=== PATIENT | male | born 1985 | race Caucasian/White ===

== ENCOUNTER 2024-01-26 10:30 | Outpatient (RCR) | payer OTHER, SELFPAY ==
--- NOTE | 2023-11-30 12:00 | PT.OIE ---
Current Diagnoses Radiculopathy, lumbar region (11/30/23) Dorsalgia, unspecified (11/30/23) Visit Care Team Role Provider Type PANCHO Cohn Attending Provider Non-Staff Primary Care Provider Referring Provider Specialty: Nursing Address: [facility], [facility] [address], [address] Email: Physical Therapy Initial Evaluation PT-OP-A Visit Information Start: 11/30/23 14:12 Freq: Status: Active Protocol: Document 11/30/23 11:15 DCW (Rec: 11/30/23 14:22 DCW [id number]) Out-Patient Physical Therapy Visit Information Visit Information Visit Type Initial Evaluation Visit Start Time 11:15 Visit Stop Time 12:00 Visit Number 1 Number of INTERNAL COMMUNICATIONS MANAGER Visits 0 Evaluation Information Evaluation Date 11/30/23 PT-OP-B Current Condition Start: 11/30/23 14:12 Freq: Status: Active Protocol: Document 11/30/23 11:15 DCW (Rec: 12/01/23 12:32 DCW [id number]) Current Condition History of Current Condition Onset Date Multi-year history Current Complaints Low back pain History of Current Condition Pt is a 38 year old male presenting with a long- standing history of low back pain, however pt notes that 1- 2 months ago, he had an episode where he bent over to don his pants, and had sudden flare-up of back pain, and was unable to stand up. Ended up needing to crawl up the wall[place], which, per pt, showed disc bulging in L2- 3, L3-4, and L4-5. Pt reports he had a massage, which seemed to help, and then his PCP provided OMT, which also helped short-term, unfortunately the following day, had severe re-flare-up of pain. Pt notes that every morning is physically painful to get out of bed. Also hurts more when first getting up from sitting for an extended period of time. Pain is mainly across his lumbar spine, but does radiate down the lateral aspect of his leg to his knee, mainly on right, very occasionally on his left. Has been significantly better over the past week. Treatment Goals Patient/Caregiver Goals To be able to get out of his bed in the morning without pain PT-OP-C Subjective Start: 11/30/23 14:12 Freq: Status: Active Protocol: Document 11/30/23 11:15 DCW (Rec: 11/30/23 14:22 DCW [id number]) OP-PT Subjective Patient Comments Patient Comments It's actually not too bad today. Patient Reported Progress Improving Patient Questionnaires Oswestry Low Back Index Oswestry Score 16/50 = 32% OP-PT Pain Assessment Location Lower Back Pain Location Details Across low back bilaterally Intensity 5 Scale Used Numeric (0 - 10) Radiating Location Occasional radicular pain down right lateral leg to knee PT-OP-F Manual Assessment Start: 11/30/23 14:12 Freq: Status: Active Protocol: Document 11/30/23 11:15 DCW (Rec: 11/30/23 14:28 DCW [id number]) Manual Assessments Soft Tissue Assessment Soft Tissue Mobility Assessment Moderate tone and tenderness to palpation 2/4: Pain with wincing along bilateral lumbar paraspinals, superior glutes, and piriformis Joint Mobility Assessment Joint Mobility Assessment Mild hypomobility of lumbar vertabre P->A PT-OP-K Range of Motion Start: 11/30/23 14:12 Freq: Status: Active Protocol: Document 11/30/23 11:15 DCW (Rec: 11/30/23 14:28 DCW [id number]) Lumbar Spine Range of Motion Lumbar Spine Active Degrees Testing Position Standing Flexion 55 Extension 20 Lateral Flexion Left 55 Lateral Flexion Right 53 ROM Limitations Soft Tissue Tightness Comments Lateral flexion measured in cm from fingertips to floor Increased pain on R with left lateral flexion PT-OP-L Special Tests Start: 11/30/23 14:12 Freq: Status: Active Protocol: Document 11/30/23 11:15 DCW (Rec: 11/30/23 14:28 DCW [id number]) Special Tests Lumbar Spine Special Tests Vertical Spine Loading Test Results Negative Straight Leg Raise Test Results Bilateral hamstring tightness Slump Test Results Bilateral hamstring tightness Prone Press Up Test Results Worsens pain Compression Test Results Negative A-P Shearing Test Results Negative Hip Special Tests Piriformis Test Results Bilateral tightness MARCIN Test Results Positive right ipsilateral pain PT-OP-M Strength Start: 11/30/23 14:12 Freq: Status: Active Protocol: Document 11/30/23 11:15 DCW (Rec: 11/30/23 14:22 DCW [id number]) Hip Strength Hip Manual Muscle Testing Right Flexion (L2) 5 Normal Abduction 5 Normal Adduction 5 Normal Left Flexion (L2) 5 Normal Abduction 5 Normal Adduction 5 Normal Knee Strength Knee Manual Muscle Testing Right Flexion (S2) 5 Normal Extension (L3) 5 Normal Left Flexion (S2) 5 Normal Extension (L3) 5 Normal PT-OP-Q Treatments Start: 11/30/23 14:12 Freq: Status: Active Protocol: Document 11/30/23 11:15 DCW (Rec: 11/30/23 14:22 DCW [id number]) Therapeutic Exercises Sidelying Exercises Reverse Clamshell Sidelying Exercise Name Reverse Clamshell Clamshell Sidelying Exercise Name Clamshell Open Book Sidelying Exercise Name Open Book Sitting Exercises Piriformis Sitting Exercise Name Seated figure-4 PT-OP-T Assessment and Plan Start: 11/30/23 14:12 Freq: Status: Active Protocol: Document 11/30/23 11:15 DCW (Rec: 12/01/23 12:32 DCW [id number]) Physical Therapy Assessment Rehab Potential Rehabilitation Potential Good Evaluation Complexity Number of Personal Factors/Comorbidities 0 Number of Body Systems Impaired 4 or More Clinical Presentation at Evaluation Stable Impairments Impairments Functional Activities, Functional Mobility,Soft Tissue Mobility,Tone Goals Two Impairment Pt experiences increase in low back pain to 5/10 getting out of bed Senior Care Goal (LTG) Pt to report decreased pain getting out of bed in the morning, a max of 2/10, in order to demonstrate improved functional mobility. LTG Duration 01/31/24 One Impairment Pt does not have an appropriate home exercise program Short Term Goal (STG) Pt to be independent and compliant with an appropriate HEP STG Duration 12/31/23 Assessment Summary Assessment Pt presents with signs and symptoms consistent with referring diagnosis. Pt overall already demonstrating fairly good improvement since initial referral, however continues to experiencing lingering increased muscle/ soft tissue tone along low back and posterior hips. Did not respond well to lumbar extension exercises. Tone and mild lumbar hypomobility does limit some ROM, pt appeared to respond well to stretching and focus on lumbar mobility, including open book. Pt should benefit from skilled therapeutic intervention focusing on stretching/tone management, functional lumbar mobility, and increasing hip/ lumbar stabilization Physical Therapy Plan Frequency and Duration Frequency of Treatment 2x/Week Plan of Care Start Date 11/30/23 Plan of Care End Date 01/31/24 Therapeutic Interventions Therapeutic Interventions Home Exercise Program,Joint Mobilizations,Manual Therapy, Neuromuscular Re-education, Patient/Caregiver Education, Self-Care/Home Management,Soft Tissue Mobilization, Therapeutic Activities, Therapeutic Exercises Modalities Cold Pack/Ice Massage,Hot Packs Next Visit Focus/Plan Next Note Type Treatment Note Next Visit Plan STM, lumbar stretching, core stabilization
--- NOTE | 2023-11-30 12:00 | PT.OPPOC ---
Physical, Occupational & Speech Therapy At [facility] Current Diagnoses Radiculopathy, lumbar region (11/30/23) Dorsalgia, unspecified (11/30/23) Visit Care Team Role Provider Type PANCHO Cohn Attending Provider Non-Staff Primary Care Provider Referring Provider Specialty: Nursing Address: [address], [address] Email: Plan Of Care PT-OP-T Assessment and Plan Start: 11/30/23 14:12 Freq: Status: Active Protocol: Document 11/30/23 11:15 DCW (Rec: 12/01/23 12:32 DCW [id number]) Physical Therapy Assessment Rehab Potential Rehabilitation Potential Good Evaluation Complexity Number of Personal Factors/Comorbidities 0 Number of Body Systems Impaired 4 or More Clinical Presentation at Evaluation Stable Impairments Impairments Functional Activities, Functional Mobility,Soft Tissue Mobility,Tone Goals Two Impairment Pt experiences increase in low back pain to 5/10 getting out of bed Fci Goal (LTG) Pt to report decreased pain getting out of bed in the morning, a max of 2/10, in order to demonstrate improved functional mobility. LTG Duration 01/31/24 One Impairment Pt does not have an appropriate home exercise program Short Term Goal (STG) Pt to be independent and compliant with an appropriate HEP STG Duration 12/31/23 Assessment Summary Assessment Pt presents with signs and symptoms consistent with referring diagnosis. Pt overall already demonstrating fairly good improvement since initial referral, however continues to experiencing lingering increased muscle/ soft tissue tone along low back and posterior hips. Did not respond well to lumbar extension exercises. Tone and mild lumbar hypomobility does limit some ROM, pt appeared to respond well to stretching and focus on lumbar mobility, including open book. Pt should benefit from skilled therapeutic intervention focusing on stretching/tone management, functional lumbar mobility, and increasing hip/ lumbar stabilization Physical Therapy Plan Frequency and Duration Frequency of Treatment 2x/Week Plan of Care Start Date 11/30/23 Plan of Care End Date 01/31/24 Therapeutic Interventions Therapeutic Interventions Home Exercise Program,Joint Mobilizations,Manual Therapy, Neuromuscular Re-education, Patient/Caregiver Education, Self-Care/Home Management,Soft Tissue Mobilization, Therapeutic Activities, Therapeutic Exercises Modalities Cold Pack/Ice Massage,Hot Packs Next Visit Focus/Plan Next Note Type Treatment Note Next Visit Plan STM, lumbar stretching, core stabilization Plan of Care Dates Plan of Care Start Date 11/30/23 Plan of Care End Date 01/31/24 Electronically Signed by: Milan Tucker, PT 12/01/23 [id number] If you are in agreement with this Plan of Care, please return a signed and dated copy. I have reviewed this Plan of Care and certify that the skilled therapy services above are required to meet the patient?s needs. Physician Signature Date Printed Name and Credentials Clinical Instructor Signature Printed Name and Credentials
--- NOTE | 2023-12-02 12:48 | PT.OTN ---
Current Diagnoses Radiculopathy, lumbar region (12/02/23) Dorsalgia, unspecified (12/02/23) Physical Therapy Treatment Note PT-OP-A Visit Information Start: 11/30/23 14:12 Freq: Status: Active Protocol: Document 12/02/23 12:00 DCW (Rec: 12/02/23 12:48 DCW [id number]) Out-Patient Physical Therapy Visit Information Visit Information Visit Type Treatment Note Visit Start Time 12:00 Visit Stop Time 12:45 Visit Number 2 Number of SAFETY SEALER Visits 0 Evaluation Information Evaluation Date 11/30/23 PT-OP-B Current Condition Start: 11/30/23 14:12 Freq: Status: Active Protocol: Document 11/30/23 11:15 DCW (Rec: 12/01/23 12:32 DCW [id number]) Current Condition History of Current Condition Onset Date Multi-year history Current Complaints Low back pain History of Current Condition Pt is a 38 year old male presenting with a long- standing history of low back pain, however pt notes that 1- 2 months ago, he had an episode where he bent over to don his pants, and had sudden flare-up of back pain, and was unable to stand up. Ended up needing to crawl up the wall[place] performed, which, per pt, showed disc bulging in L2- 3, L3-4, and L4-5. Pt reports he had a massage, which seemed to help, and then his PCP provided OMT, which also helped short-term, unfortunately the following day, had severe re-flare-up of pain. Pt notes that every morning is physically painful to get out of bed. Also hurts more when first getting up from sitting for an extended period of time. Pain is mainly across his lumbar spine, but does radiate down the lateral aspect of his leg to his knee, mainly on right, very occasionally on his left. Has been significantly better over the past week. Treatment Goals Patient/Caregiver Goals To be able to get out of his bed in the morning without pain PT-OP-C Subjective Start: 11/30/23 14:12 Freq: Status: Active Protocol: Document 12/02/23 12:00 DCW (Rec: 12/02/23 12:48 DCW [id number]) OP-PT Subjective Patient Comments Patient Comments A bit more painful yesterday and this morning, but expected, because I've been stretching. PT-OP-F Manual Assessment Start: 11/30/23 14:12 Freq: Status: Active Protocol: Document 11/30/23 11:15 DCW (Rec: 11/30/23 14:28 DCW [id number]) Manual Assessments Soft Tissue Assessment Soft Tissue Mobility Assessment Moderate tone and tenderness to palpation 2/4: Pain with wincing along bilateral lumbar paraspinals, superior glutes, and piriformis Joint Mobility Assessment Joint Mobility Assessment Mild hypomobility of lumbar vertabre P->A PT-OP-K Range of Motion Start: 11/30/23 14:12 Freq: Status: Active Protocol: Document 11/30/23 11:15 DCW (Rec: 11/30/23 14:28 DCW [id number]) Lumbar Spine Range of Motion Lumbar Spine Active Degrees Testing Position Standing Flexion 55 Extension 20 Lateral Flexion Left 55 Lateral Flexion Right 53 ROM Limitations Soft Tissue Tightness Comments Lateral flexion measured in cm from fingertips to floor Increased pain on R with left lateral flexion PT-OP-L Special Tests Start: 11/30/23 14:12 Freq: Status: Active Protocol: Document 11/30/23 11:15 DCW (Rec: 11/30/23 14:28 DCW [id number]) Special Tests Lumbar Spine Special Tests Vertical Spine Loading Test Results Negative Straight Leg Raise Test Results Bilateral hamstring tightness Slump Test Results Bilateral hamstring tightness Prone Press Up Test Results Worsens pain Compression Test Results Negative A-P Shearing Test Results Negative Hip Special Tests Piriformis Test Results Bilateral tightness MARCIN Test Results Positive right ipsilateral pain PT-OP-M Strength Start: 11/30/23 14:12 Freq: Status: Active Protocol: Document 11/30/23 11:15 DCW (Rec: 11/30/23 14:22 DCW [id number]) Hip Strength Hip Manual Muscle Testing Right Flexion (L2) 5 Normal Abduction 5 Normal Adduction 5 Normal Left Flexion (L2) 5 Normal Abduction 5 Normal Adduction 5 Normal Knee Strength Knee Manual Muscle Testing Right Flexion (S2) 5 Normal Extension (L3) 5 Normal Left Flexion (S2) 5 Normal Extension (L3) 5 Normal PT-OP-Q Treatments Start: 11/30/23 14:12 Freq: Status: Active Protocol: Document 12/02/23 12:00 DCW (Rec: 12/02/23 12:48 [facility] [id number]) Gym Equipment Therapeutic Ball Bridging Exercise Details Bridging /c feet on ball, add in HS curl Ball Size/Color Red - 55 cm Body Position Supine Resisted Rotation Exercise Details Resisted trunk rotation Ball Size/Color Green - 55 cm Lv 3 T-band Body Position Sitting Pelvic Tilts Exercise Details Pelvic tilts/circles Ball Size/Color Green - 55 cm Body Position Sitting Therapeutic Exercises Supine Exercises Piriformis Stretch Supine Exercise Name Knee to opposite shoulder Side bilateral Bridging Supine Exercise Name Bridging /c Ball squeeze, then with single leg lift Other Exercises Thread the Needle Other Exercise Name Thread the Needle Side bilateral Comments Quadruped Child's Pose Other Exercise Name Child's Pose Comments Quadruped Cat/Camel Other Exercise Name Cat/Camel Comments Quadruped Manual Therapy Treatment Consent Patient gave verbal consent for manual Yes treatment Soft Tissue Mobilization Lumbar Body Location R Lumbar paraspinals, upper glute Mobilization Type Strumming,Sustained Pressure Body Position Sidelying PT-OP-T Assessment and Plan Start: 11/30/23 14:12 Freq: Status: Active Protocol: Document 12/02/23 12:00 [facility] (Rec: 12/02/23 12:48 [facility] [id number]) Physical Therapy Assessment Impairments Impairments Functional Activities, Functional Mobility,Soft Tissue Mobility,Tone Goals Two Impairment Pt experiences increase in low back pain to 5/10 getting out of bed Automation Mechanic Goal (LTG) Pt to report decreased pain getting out of bed in the morning, a max of 2/10, in order to demonstrate improved functional mobility. LTG Duration 01/31/24 One Impairment Pt does not have an appropriate home exercise program Short Term Goal (STG) Pt to be independent and compliant with an appropriate HEP STG Duration 12/31/23 Assessment Summary Assessment Good response to treatment, pt felt like low back loosened significantly during treatment . Good challenge with most bridging activities, pt familiar with cat/camel and child's pose, will work on at home. Physical Therapy Plan Frequency and Duration Frequency of Treatment 2x/Week Plan of Care Start Date 11/30/23 Plan of Care End Date 01/31/24 Therapeutic Interventions Therapeutic Interventions Home Exercise Program,Joint Mobilizations,Manual Therapy, Neuromuscular Re-education, Patient/Caregiver Education, Self-Care/Home Management,Soft Tissue Mobilization, Therapeutic Activities, Therapeutic Exercises Modalities Cold Pack/Ice Massage,Hot Packs Next Visit Focus/Plan Next Note Type Treatment Note Next Visit Plan STM, lumbar stretching, core stabilization
--- NOTE | 2023-12-06 16:30 | PT.OTN ---
Current Diagnoses Radiculopathy, lumbar region (12/06/23) Dorsalgia, unspecified (12/06/23) Physical Therapy Treatment Note PT-OP-A Visit Information Start: 11/30/23 14:12 Freq: Status: Active Protocol: Document 12/06/23 12:44 AB (Rec: 12/06/23 13:47 AB [id number]) Out-Patient Physical Therapy Visit Information Visit Information Visit Type Treatment Note Visit Start Time 13:02 Visit Stop Time 13:43 Visit Number 3 Number of TEA TREE FARMER Visits 1 Evaluation Information Evaluation Date 11/30/23 PT-OP-B Current Condition Start: 11/30/23 14:12 Freq: Status: Active Protocol: Document 11/30/23 11:15 DCW (Rec: 12/01/23 12:32 DCW [id number]) Current Condition History of Current Condition Onset Date Multi-year history Current Complaints Low back pain History of Current Condition Pt is a 38 year old male presenting with a long- standing history of low back pain, however pt notes that 1- 2 months ago, he had an episode where he bent over to don his pants, and had sudden flare-up of back pain, and was unable to stand up. Ended up needing to crawl up the wall. [place] performed, which, per pt, showed disc bulging in L2- 3, L3-4, and L4-5. Pt reports he had a massage, which seemed to help, and then his PCP provided OMT, which also helped short-term, unfortunately the following day, had severe re-flare-up of pain. Pt notes that every morning is physically painful to get out of bed. Also hurts more when first getting up from sitting for an extended period of time. Pain is mainly across his lumbar spine, but does radiate down the lateral aspect of his leg to his knee, mainly on right, very occasionally on his left. Has been significantly better over the past week. Treatment Goals Patient/Caregiver Goals To be able to get out of his bed in the morning without pain PT-OP-C Subjective Start: 11/30/23 14:12 Freq: Status: Active Protocol: Document 12/06/23 12:44 AB (Rec: 12/06/23 13:47 AB [id number]) OP-PT Subjective Patient Comments Patient Comments Patient reports he is the same . Patient rates pain 2/10 right sided low back area. Patient reports massage therapist asked where to focus massage and where to position TENS unit. PT-OP-F Manual Assessment Start: 11/30/23 14:12 Freq: Status: Active Protocol: Document 11/30/23 11:15 DCW (Rec: 11/30/23 14:28 DCW [id number]) Manual Assessments Soft Tissue Assessment Soft Tissue Mobility Assessment Moderate tone and tenderness to palpation 2/4: Pain with wincing along bilateral lumbar paraspinals, superior glutes, and piriformis Joint Mobility Assessment Joint Mobility Assessment Mild hypomobility of lumbar vertabre P->A PT-OP-K Range of Motion Start: 11/30/23 14:12 Freq: Status: Active Protocol: Document 11/30/23 11:15 DCW (Rec: 11/30/23 14:28 DCW [id number]) Lumbar Spine Range of Motion Lumbar Spine Active Degrees Testing Position Standing Flexion 55 Extension 20 Lateral Flexion Left 55 Lateral Flexion Right 53 ROM Limitations Soft Tissue Tightness Comments Lateral flexion measured in cm from fingertips to floor Increased pain on R with left lateral flexion PT-OP-L Special Tests Start: 11/30/23 14:12 Freq: Status: Active Protocol: Document 11/30/23 11:15 DCW (Rec: 11/30/23 14:28 DCW [id number]) Special Tests Lumbar Spine Special Tests Vertical Spine Loading Test Results Negative Straight Leg Raise Test Results Bilateral hamstring tightness Slump Test Results Bilateral hamstring tightness Prone Press Up Test Results Worsens pain Compression Test Results Negative A-P Shearing Test Results Negative Hip Special Tests Piriformis Test Results Bilateral tightness MARCIN Test Results Positive right ipsilateral pain PT-OP-M Strength Start: 11/30/23 14:12 Freq: Status: Active Protocol: Document 11/30/23 11:15 DCW (Rec: 11/30/23 14:22 DCW [id number]) Hip Strength Hip Manual Muscle Testing Right Flexion (L2) 5 Normal Abduction 5 Normal Adduction 5 Normal Left Flexion (L2) 5 Normal Abduction 5 Normal Adduction 5 Normal Knee Strength Knee Manual Muscle Testing Right Flexion (S2) 5 Normal Extension (L3) 5 Normal Left Flexion (S2) 5 Normal Extension (L3) 5 Normal PT-OP-Q Treatments Start: 11/30/23 14:12 Freq: Status: Active Protocol: Document 12/06/23 12:44 AB (Rec: 12/06/23 13:47 AB [id number]) Therapeutic Exercises Supine Exercises abdominal bracing with LE extension Reps/Minutes X10 hamstring stretch Supine Exercise Name From hooklying Side bilateral Reps/Minutes 60 seconds X 2 Piriformis Stretch Supine Exercise Name Knee to opposite shoulder Side bilateral Reps/Minutes 60 sec X2 each LE Standing Exercises L stretch Standing Exercise Name from counter pank position Reps/Minutes X3 cat cow Standing Exercise Name from counter plank position Side bilateral Reps/Minutes X5 Therapeutic Activity Therapeutic Activity Log roll Comments to left and right side, multiple trials, verbal cues sit to stand Reps/Minutes X3 Comments Pt ed mechanics of sit to stand and self tactile cues for hip hinge Manual Therapy Treatment Soft Tissue Mobilization Lumbar Body Location R Lumbar paraspinals, upper glute Mobilization Type Strumming,Sustained Pressure Body Position Sidelying Manual Techniques MET for right AI and PI and pubic shotgun Reps/Duration 6 X 6 sec PT-OP-T Assessment and Plan Start: 11/30/23 14:12 Freq: Status: Active Protocol: Document 12/06/23 12:44 AB (Rec: 12/06/23 13:47 AB [id number]) Physical Therapy Assessment Goals Two Impairment Pt experiences increase in low back pain to 5/10 getting out of bed Sulfonator Operator Goal (LTG) Pt to report decreased pain getting out of bed in the morning, a max of 2/10, in order to demonstrate improved functional mobility. LTG Duration 01/31/24 One Impairment Pt does not have an appropriate home exercise program Short Term Goal (STG) Pt to be independent and compliant with an appropriate HEP STG Duration 12/31/23 Assessment Summary Assessment Pt reports feeling better end of session. Stand to sit with improved hip hinge, and reports less pain with log roll end of session. Physical Therapy Plan Frequency and Duration Frequency of Treatment 2x/Week Plan of Care Start Date 11/30/23 Plan of Care End Date 01/31/24 Next Visit Focus/Plan Next Note Type Treatment Note Next Visit Plan STM, lumbar stretching, core stabilization
--- NOTE | 2023-12-08 15:59 | PT.OTN ---
Current Diagnoses Radiculopathy, lumbar region (12/08/23) Dorsalgia, unspecified (12/08/23) Physical Therapy Treatment Note PT-OP-A Visit Information Start: 11/30/23 14:12 Freq: Status: Active Protocol: Document 12/08/23 13:34 SW (Rec: 12/08/23 14:32 SW [id number]) Out-Patient Physical Therapy Visit Information Visit Information Visit Type Treatment Note Visit Start Time 13:37 Visit Stop Time 14:17 Visit Number 4 Number of LI[employer]ED [employer] G[employer] OPERATOR Visits 2 PT-OP-B Current Condition Start: 11/30/23 14:12 Freq: Status: Active Protocol: Document 11/30/23 11:15 DCW (Rec: 12/01/23 12:32 DCW [id number]) Current Condition History of Current Condition Onset Date Multi-year history Current Complaints Low back pain History of Current Condition Pt is a 38 year old male presenting with a long- standing history of low back pain, however pt notes that 1- 2 months ago, he had an episode where he bent over to don his pants, and had sudden flare-up of back pain, and was unable to stand up. Ended up needing to crawl up the wall. [place], which, per pt, showed disc bulging in L2- 3, L3-4, and L4-5. Pt reports he had a massage, which seemed to help, and then his PCP provided OMT, which also helped short-term, unfortunately the following day, had severe re-flare-up of pain. Pt notes that every morning is physically painful to get out of bed. Also hurts more when first getting up from sitting for an extended period of time. Pain is mainly across his lumbar spine, but does radiate down the lateral aspect of his leg to his knee, mainly on right, very occasionally on his left. Has been significantly better over the past week. Treatment Goals Patient/Caregiver Goals To be able to get out of his bed in the morning without pain PT-OP-C Subjective Start: 11/30/23 14:12 Freq: Status: Active Protocol: Document 12/08/23 13:34 SW (Rec: 12/08/23 14:32 SW [id number]) OP-PT Subjective Patient Comments Patient Comments Pt reports pretty painful to get out of bed, has tried doing log roll technique, though forgets sometimes. Pain level 2-3/10. Pt reports he is at his 4 visists needs to see if he can get more approved. PT-OP-F Manual Assessment Start: 11/30/23 14:12 Freq: Status: Active Protocol: Document 11/30/23 11:15 DCW (Rec: 11/30/23 14:28 DCW [id number]) Manual Assessments Soft Tissue Assessment Soft Tissue Mobility Assessment Moderate tone and tenderness to palpation 2/4: Pain with wincing along bilateral lumbar paraspinals, superior glutes, and piriformis Joint Mobility Assessment Joint Mobility Assessment Mild hypomobility of lumbar vertabre P->A PT-OP-K Range of Motion Start: 11/30/23 14:12 Freq: Status: Active Protocol: Document 11/30/23 11:15 DCW (Rec: 11/30/23 14:28 DCW [id number]) Lumbar Spine Range of Motion Lumbar Spine Active Degrees Testing Position Standing Flexion 55 Extension 20 Lateral Flexion Left 55 Lateral Flexion Right 53 ROM Limitations Soft Tissue Tightness Comments Lateral flexion measured in cm from fingertips to floor Increased pain on R with left lateral flexion PT-OP-L Special Tests Start: 11/30/23 14:12 Freq: Status: Active Protocol: Document 11/30/23 11:15 DCW (Rec: 11/30/23 14:28 DCW [id number]) Special Tests Lumbar Spine Special Tests Vertical Spine Loading Test Results Negative Straight Leg Raise Test Results Bilateral hamstring tightness Slump Test Results Bilateral hamstring tightness Prone Press Up Test Results Worsens pain Compression Test Results Negative A-P Shearing Test Results Negative Hip Special Tests Piriformis Test Results Bilateral tightness MARCIN Test Results Positive right ipsilateral pain PT-OP-M Strength Start: 11/30/23 14:12 Freq: Status: Active Protocol: Document 11/30/23 11:15 DCW (Rec: 11/30/23 14:22 DCW [id number]) Hip Strength Hip Manual Muscle Testing Right Flexion (L2) 5 Normal Abduction 5 Normal Adduction 5 Normal Left Flexion (L2) 5 Normal Abduction 5 Normal Adduction 5 Normal Knee Strength Knee Manual Muscle Testing Right Flexion (S2) 5 Normal Extension (L3) 5 Normal Left Flexion (S2) 5 Normal Extension (L3) 5 Normal PT-OP-Q Treatments Start: 11/30/23 14:12 Freq: Status: Active Protocol: Document 12/08/23 13:34 (Rec: 12/08/23 14:32 [id number]) Therapeutic Exercises Supine Exercises abdominal bracing with LE extension Supine Exercise Name LE Extension> SLR (issued HEP) Reps/Minutes x10 ea Comments verbal/tactile cues for core facitilitation hamstring stretch Supine Exercise Name From hooklying Side bilateral Reps/Minutes 60 seconds X 2 Comments with and without ankle pumps Piriformis Stretch Supine Exercise Name Knee to opposite shoulder Side bilateral Reps/Minutes 60 sec X2 each LE Sidelying Exercises Reverse Clamshell Sidelying Exercise Name Reverse Clamshell Side bilateral Resistance AROM>Lvl 1 Comments Trialed level 2 difficulty stabilizing core Clamshell Sidelying Exercise Name Clamshell Side bilateral Resistance AROM>Lvl 1 Comments Trialed lvl 2 difficulty stabilizing core Sitting Exercises Piriformis Sitting Exercise Name Seated figure-4 Standing Exercises Palloff Standing Exercise Name Palloff press (issued HEP, pt denied HO) Side bilateral Resistance Level 3 Green TB Reps/Minutes x10 ea Comments cues for core facilitation, neutral pelvis L stretch Standing Exercise Name from counter pank position Side bilateral cat cow Standing Exercise Name from counter plank position Side bilateral Other Exercises Child's Pose Other Exercise Name verbal review Manual Therapy Treatment Soft Tissue Mobilization Lumbar Body Location R Lumbar paraspinals, upper glute Mobilization Type Strumming,Sustained Pressure Body Position Sidelying PT-OP-T Assessment and Plan Start: 11/30/23 14:12 Freq: Status: Active Protocol: Document 12/08/23 13:34 (Rec: 12/08/23 14:32 [id number]) Physical Therapy Assessment Goals Two Impairment Pt experiences increase in low back pain to 5/10 getting out of bed Correction Goal (LTG) Pt to report decreased pain getting out of bed in the morning, a max of 2/10, in order to demonstrate improved functional mobility. LTG Duration 01/31/24 One Impairment Pt does not have an appropriate home exercise program Short Term Goal (STG) Pt to be independent and compliant with an appropriate HEP STG Duration 12/31/23 Assessment Summary Assessment Progressed pt with resistance during clamshells, pt challenged with core stabilization, improved with cueing, pt demonstrated good form after a few repetitions. Pt standing with increased anterior pelvic tilt, educated pt on neutral pelvic alignment and engagement of core musculature during standing exercises. Continued HS stretch this session to increase length, educated pt on hamstring tightness and how it pulls on the pelvis. Encouraged pt to stretch daily . Physical Therapy Plan Frequency and Duration Frequency of Treatment 2x/Week Plan of Care Start Date 11/30/23 Plan of Care End Date 01/31/24 Therapeutic Interventions Therapeutic Interventions Home Exercise Program,Joint Mobilizations,Manual Therapy, Neuromuscular Re-education, Patient/Caregiver Education, Self-Care/Home Management,Soft Tissue Mobilization, Therapeutic Activities, Therapeutic Exercises Modalities Cold Pack/Ice Massage,Hot Packs Next Visit Focus/Plan Next Note Type Treatment Note Next Visit Plan STM, lumbar stretching, core stabilization
--- NOTE | 2023-12-22 12:43 | PT.OTN ---
Current Diagnoses Radiculopathy, lumbar region (12/22/23) Dorsalgia, unspecified (12/22/23) Physical Therapy Treatment Note PT-OP-A Visit Information Start: 11/30/23 14:12 Freq: Status: Active Protocol: Document 12/22/23 12:00 DCW (Rec: 12/22/23 12:43 DCW [id number]) Out-Patient Physical Therapy Visit Information Visit Information Visit Type Treatment Note Visit Start Time 12:00 Visit Stop Time 12:45 Visit Number 5 Number of [employer]ON HELPER Visits 0 Evaluation Information Evaluation Date 11/30/23 PT-OP-B Current Condition Start: 11/30/23 14:12 Freq: Status: Active Protocol: Document 11/30/23 11:15 DCW (Rec: 12/01/23 12:32 DCW [id number]) Current Condition History of Current Condition Onset Date Multi-year history Current Complaints Low back pain History of Current Condition Pt is a 38 year old male presenting with a long- standing history of low back pain, however pt notes that 1- 2 months ago, he had an episode where he bent over to don his pants, and had sudden flare-up of back pain, and was unable to stand up. Ended up needing to crawl up the wall. [place] performed, which, per pt, showed disc bulging in L2- 3, L3-4, and L4-5. Pt reports he had a massage, which seemed to help, and then his PCP provided OMT, which also helped short-term, unfortunately the following day, had severe re-flare-up of pain. Pt notes that every morning is physically painful to get out of bed. Also hurts more when first getting up from sitting for an extended period of time. Pain is mainly across his lumbar spine, but does radiate down the lateral aspect of his leg to his knee, mainly on right, very occasionally on his left. Has been significantly better over the past week. Treatment Goals Patient/Caregiver Goals To be able to get out of his bed in the morning without pain PT-OP-C Subjective Start: 11/30/23 14:12 Freq: Status: Active Protocol: Document 12/22/23 12:00 DCW (Rec: 12/22/23 12:43 DCW [id number]) OP-PT Subjective Patient Comments Patient Comments Been better, working on the different exercises, so we're getting there. PT-OP-F Manual Assessment Start: 11/30/23 14:12 Freq: Status: Active Protocol: Document 11/30/23 11:15 DCW (Rec: 11/30/23 14:28 DCW [id number]) Manual Assessments Soft Tissue Assessment Soft Tissue Mobility Assessment Moderate tone and tenderness to palpation 2/4: Pain with wincing along bilateral lumbar paraspinals, superior glutes, and piriformis Joint Mobility Assessment Joint Mobility Assessment Mild hypomobility of lumbar vertabre P->A PT-OP-K Range of Motion Start: 11/30/23 14:12 Freq: Status: Active Protocol: Document 11/30/23 11:15 DCW (Rec: 11/30/23 14:28 DCW [id number]) Lumbar Spine Range of Motion Lumbar Spine Active Degrees Testing Position Standing Flexion 55 Extension 20 Lateral Flexion Left 55 Lateral Flexion Right 53 ROM Limitations Soft Tissue Tightness Comments Lateral flexion measured in cm from fingertips to floor Increased pain on R with left lateral flexion PT-OP-L Special Tests Start: 11/30/23 14:12 Freq: Status: Active Protocol: Document 11/30/23 11:15 DCW (Rec: 11/30/23 14:28 DCW [id number]) Special Tests Lumbar Spine Special Tests Vertical Spine Loading Test Results Negative Straight Leg Raise Test Results Bilateral hamstring tightness Slump Test Results Bilateral hamstring tightness Prone Press Up Test Results Worsens pain Compression Test Results Negative A-P Shearing Test Results Negative Hip Special Tests Piriformis Test Results Bilateral tightness MARCIN Test Results Positive right ipsilateral pain PT-OP-M Strength Start: 11/30/23 14:12 Freq: Status: Active Protocol: Document 11/30/23 11:15 DCW (Rec: 11/30/23 14:22 DCW [id number]) Hip Strength Hip Manual Muscle Testing Right Flexion (L2) 5 Normal Abduction 5 Normal Adduction 5 Normal Left Flexion (L2) 5 Normal Abduction 5 Normal Adduction 5 Normal Knee Strength Knee Manual Muscle Testing Right Flexion (S2) 5 Normal Extension (L3) 5 Normal Left Flexion (S2) 5 Normal Extension (L3) 5 Normal PT-OP-Q Treatments Start: 11/30/23 14:12 Freq: Status: Active Protocol: Document 12/22/23 12:00 DCW (Rec: 12/22/23 12:43 [facility] [id number]) Therapeutic Exercises Supine Exercises hamstring stretch Supine Exercise Name From hooklying Side bilateral Reps/Minutes 60 seconds X 2 Piriformis Stretch Supine Exercise Name Knee to opposite shoulder Side bilateral Reps/Minutes 60 sec X2 each LE Sidelying Exercises Hip Flexor stretch Sidelying Exercise Name Hip Flexor stretch Side right Comments Manual Manual Therapy Treatment Soft Tissue Mobilization Lumbar Body Location R Lumbar paraspinals, upper glute Mobilization Type Strumming,Sustained Pressure Body Position Prone Joint Mobilizations Lumbar Joint Lumbar vertebrae Direction P->A Grade II Body Position Prone PT-OP-T Assessment and Plan Start: 11/30/23 14:12 Freq: Status: Active Protocol: Document 12/22/23 12:00 DCW (Rec: 12/22/23 12:43 [facility] [id number]) Physical Therapy Assessment Impairments Impairments Functional Activities, Functional Mobility,Soft Tissue Mobility,Tone Goals Two Impairment Pt experiences increase in low back pain to 5/10 getting out of bed Fci Goal (LTG) Pt to report decreased pain getting out of bed in the morning, a max of 2/10, in order to demonstrate improved functional mobility. LTG Duration 01/31/24 One Impairment Pt does not have an appropriate home exercise program Short Term Goal (STG) Pt to be independent and compliant with an appropriate HEP STG Duration 12/31/23 Assessment Summary Assessment Pt making good progress, significantly less pain when first getting up in the morning. Has been compliant with HEP, notes no questions or concerns. Continue to focus on stretching, STM, tone management. Physical Therapy Plan Frequency and Duration Frequency of Treatment 2x/Week Plan of Care Start Date 11/30/23 Plan of Care End Date 01/31/24 Therapeutic Interventions Therapeutic Interventions Home Exercise Program,Joint Mobilizations,Manual Therapy, Neuromuscular Re-education, Patient/Caregiver Education, Self-Care/Home Management,Soft Tissue Mobilization, Therapeutic Activities, Therapeutic Exercises Modalities Cold Pack/Ice Massage,Hot Packs Next Visit Focus/Plan Next Note Type Treatment Note Next Visit Plan STM, lumbar stretching, core stabilization
--- NOTE | 2023-12-27 16:43 | PT.OTN ---
Current Diagnoses Radiculopathy, lumbar region (12/27/23) Dorsalgia, unspecified (12/27/23) Physical Therapy Treatment Note PT-OP-A Visit Information Start: 11/30/23 14:12 Freq: Status: Active Protocol: Document 12/27/23 13:46 SW (Rec: 12/27/23 14:32 SW [id number]) Out-Patient Physical Therapy Visit Information Visit Information Visit Type Treatment Note Visit Start Time 13:46 Visit Stop Time 14:26 Visit Number 6 Number of SECURITY CHECKER Visits 1 PT-OP-B Current Condition Start: 11/30/23 14:12 Freq: Status: Active Protocol: Document 11/30/23 11:15 DCW (Rec: 12/01/23 12:32 DCW [id number]) Current Condition History of Current Condition Onset Date Multi-year history Current Complaints Low back pain History of Current Condition Pt is a 38 year old male presenting with a long- standing history of low back pain, however pt notes that 1- 2 months ago, he had an episode where he bent over to don his pants, and had sudden flare-up of back pain, and was unable to stand up. Ended up needing to crawl up the wall. [place] performed, which, per pt, showed disc bulging in L2- 3, L3-4, and L4-5. Pt reports he had a massage, which seemed to help, and then his PCP provided OMT, which also helped short-term, unfortunately the following day, had severe re-flare-up of pain. Pt notes that every morning is physically painful to get out of bed. Also hurts more when first getting up from sitting for an extended period of time. Pain is mainly across his lumbar spine, but does radiate down the lateral aspect of his leg to his knee, mainly on right, very occasionally on his left. Has been significantly better over the past week. Treatment Goals Patient/Caregiver Goals To be able to get out of his bed in the morning without pain PT-OP-C Subjective Start: 11/30/23 14:12 Freq: Status: Active Protocol: Document 12/27/23 13:46 SW (Rec: 12/27/23 14:32 SW [id number]) OP-PT Subjective Patient Comments Patient Comments Pt reports sore following last session, it helped loosen up and felt better. PT-OP-F Manual Assessment Start: 11/30/23 14:12 Freq: Status: Active Protocol: Document 11/30/23 11:15 DCW (Rec: 11/30/23 14:28 DCW [id number]) Manual Assessments Soft Tissue Assessment Soft Tissue Mobility Assessment Moderate tone and tenderness to palpation 2/4: Pain with wincing along bilateral lumbar paraspinals, superior glutes, and piriformis Joint Mobility Assessment Joint Mobility Assessment Mild hypomobility of lumbar vertabre P->A PT-OP-K Range of Motion Start: 11/30/23 14:12 Freq: Status: Active Protocol: Document 11/30/23 11:15 DCW (Rec: 11/30/23 14:28 DCW [id number]) Lumbar Spine Range of Motion Lumbar Spine Active Degrees Testing Position Standing Flexion 55 Extension 20 Lateral Flexion Left 55 Lateral Flexion Right 53 ROM Limitations Soft Tissue Tightness Comments Lateral flexion measured in cm from fingertips to floor Increased pain on R with left lateral flexion PT-OP-L Special Tests Start: 11/30/23 14:12 Freq: Status: Active Protocol: Document 11/30/23 11:15 DCW (Rec: 11/30/23 14:28 DCW [id number]) Special Tests Lumbar Spine Special Tests Vertical Spine Loading Test Results Negative Straight Leg Raise Test Results Bilateral hamstring tightness Slump Test Results Bilateral hamstring tightness Prone Press Up Test Results Worsens pain Compression Test Results Negative A-P Shearing Test Results Negative Hip Special Tests Piriformis Test Results Bilateral tightness MRACIN Test Results Positive right ipsilateral pain PT-OP-M Strength Start: 11/30/23 14:12 Freq: Status: Active Protocol: Document 11/30/23 11:15 DCW (Rec: 11/30/23 14:22 DCW [id number]) Hip Strength Hip Manual Muscle Testing Right Flexion (L2) 5 Normal Abduction 5 Normal Adduction 5 Normal Left Flexion (L2) 5 Normal Abduction 5 Normal Adduction 5 Normal Knee Strength Knee Manual Muscle Testing Right Flexion (S2) 5 Normal Extension (L3) 5 Normal Left Flexion (S2) 5 Normal Extension (L3) 5 Normal PT-OP-Q Treatments Start: 11/30/23 14:12 Freq: Status: Active Protocol: Document 12/27/23 13:46 SW (Rec: 12/27/23 14:32 SW [id number]) Gym Equipment Therapeutic Ball Lumbar flexion Exercise Details Lumbar flexion stretch Ball Size/Color Green Body Position seated Reps/Duration 2 x 60 Comments good stretch Therapeutic Exercises Supine Exercises hamstring stretch Supine Exercise Name From hooklying> sitting Side bilateral Reps/Minutes 60 seconds supine, 60 seconds sitting Sitting Exercises Piriformis Sitting Exercise Name Seated figure-4 Standing Exercises Hip flexor stretch Standing Exercise Name Hip flexor stretch Equipment Used Stairs Comments cues for hip alignment during stretch, core stabilization Gastroc/soleus Standing Exercise Name gastroc/soleus stretch Manual Therapy Treatment Consent Patient gave verbal consent for manual Yes treatment Soft Tissue Mobilization Lumbar Body Location R Lumbar paraspinals, upper glute Mobilization Type Strumming,Sustained Pressure Body Position Prone Manual Techniques PNF Type Contract relax Body Location HS Body Position Supine Comments manual HS stretch, pt education for at home stretch against wall PT-OP-T Assessment and Plan Start: 11/30/23 14:12 Freq: Status: Active Protocol: Document 12/27/23 13:46 (Rec: 12/27/23 14:32 [id number]) Physical Therapy Assessment Goals Two Impairment Pt experiences increase in low back pain to 5/10 getting out of bed Alf Goal (LTG) Pt to report decreased pain getting out of bed in the morning, a max of 2/10, in order to demonstrate improved functional mobility. LTG Duration 01/31/24 One Impairment Pt does not have an appropriate home exercise program Short Term Goal (STG) Pt to be independent and compliant with an appropriate HEP STG Duration 12/31/23 Assessment Summary Assessment Pt reports has been busy, not consistant with HEP. Continued focus on STM and stretching this session per PT plan. Initated PNF stretching this session with good pt feedback, instructed pt on self contract relax technique against wall for carryover to HEP. Pt denied HEP exercise HOs. Revised HEP to encourage pt compliance with easier positions to execute and fit in throughout the pt's workday . Physical Therapy Plan Frequency and Duration Frequency of Treatment 2x/Week Plan of Care Start Date 11/30/23 Plan of Care End Date 01/31/24 Therapeutic Interventions Therapeutic Interventions Home Exercise Program,Joint Mobilizations,Manual Therapy, Neuromuscular Re-education, Patient/Caregiver Education, Self-Care/Home Management,Soft Tissue Mobilization, Therapeutic Activities, Therapeutic Exercises Modalities Cold Pack/Ice Massage,Hot Packs Next Visit Focus/Plan Next Note Type Treatment Note Next Visit Plan STM, lumbar stretching, core stabilization
--- NOTE | 2023-12-29 14:54 | PT.OTN ---
Current Diagnoses Radiculopathy, lumbar region (12/29/23) Dorsalgia, unspecified (12/29/23) Physical Therapy Treatment Note PT-OP-A Visit Information Start: 11/30/23 14:12 Freq: Status: Active Protocol: Document 12/29/23 13:25 SW (Rec: 12/29/23 14:54 SW [id number]) Out-Patient Physical Therapy Visit Information Visit Information Visit Type Treatment Note Visit Start Time 13:45 Visit Stop Time 14:25 Visit Number 7 Number of OUTBOARD MOTORBOAT OPERATOR Visits 2 PT-OP-B Current Condition Start: 11/30/23 14:12 Freq: Status: Active Protocol: Document 11/30/23 11:15 DCW (Rec: 12/01/23 12:32 DCW [id number]) Current Condition History of Current Condition Onset Date Multi-year history Current Complaints Low back pain History of Current Condition Pt is a 38 year old male presenting with a long- standing history of low back pain, however pt notes that 1- 2 months ago, he had an episode where he bent over to don his pants, and had sudden flare-up of back pain, and was unable to stand up. Ended up needing to crawl up the wall[place], which, per pt, showed disc bulging in L2- 3, L3-4, and L4-5. Pt reports he had a massage, which seemed to help, and then his PCP provided OMT, which also helped short-term, unfortunately the following day, had severe re-flare-up of pain. Pt notes that every morning is physically painful to get out of bed. Also hurts more when first getting up from sitting for an extended period of time. Pain is mainly across his lumbar spine, but does radiate down the lateral aspect of his leg to his knee, mainly on right, very occasionally on his left. Has been significantly better over the past week. Treatment Goals Patient/Caregiver Goals To be able to get out of his bed in the morning without pain PT-OP-C Subjective Start: 11/30/23 14:12 Freq: Status: Active Protocol: Document 12/29/23 13:25 SW (Rec: 12/29/23 14:54 SW [id number]) OP-PT Subjective Patient Comments Patient Comments Pt reports a little pain getting up from bed this morning, attributes it to increased activity over the last couple days. PT-OP-F Manual Assessment Start: 11/30/23 14:12 Freq: Status: Active Protocol: Document 11/30/23 11:15 DCW (Rec: 11/30/23 14:28 DCW [id number]) Manual Assessments Soft Tissue Assessment Soft Tissue Mobility Assessment Moderate tone and tenderness to palpation 2/4: Pain with wincing along bilateral lumbar paraspinals, superior glutes, and piriformis Joint Mobility Assessment Joint Mobility Assessment Mild hypomobility of lumbar vertabre P->A PT-OP-K Range of Motion Start: 11/30/23 14:12 Freq: Status: Active Protocol: Document 11/30/23 11:15 DCW (Rec: 11/30/23 14:28 DCW [id number]) Lumbar Spine Range of Motion Lumbar Spine Active Degrees Testing Position Standing Flexion 55 Extension 20 Lateral Flexion Left 55 Lateral Flexion Right 53 ROM Limitations Soft Tissue Tightness Comments Lateral flexion measured in cm from fingertips to floor Increased pain on R with left lateral flexion PT-OP-L Special Tests Start: 11/30/23 14:12 Freq: Status: Active Protocol: Document 11/30/23 11:15 DCW (Rec: 11/30/23 14:28 DCW [id number]) Special Tests Lumbar Spine Special Tests Vertical Spine Loading Test Results Negative Straight Leg Raise Test Results Bilateral hamstring tightness Slump Test Results Bilateral hamstring tightness Prone Press Up Test Results Worsens pain Compression Test Results Negative A-P Shearing Test Results Negative Hip Special Tests Piriformis Test Results Bilateral tightness MARCIN Test Results Positive right ipsilateral pain PT-OP-M Strength Start: 11/30/23 14:12 Freq: Status: Active Protocol: Document 11/30/23 11:15 DCW (Rec: 11/30/23 14:22 DCW [id number]) Hip Strength Hip Manual Muscle Testing Right Flexion (L2) 5 Normal Abduction 5 Normal Adduction 5 Normal Left Flexion (L2) 5 Normal Abduction 5 Normal Adduction 5 Normal Knee Strength Knee Manual Muscle Testing Right Flexion (S2) 5 Normal Extension (L3) 5 Normal Left Flexion (S2) 5 Normal Extension (L3) 5 Normal PT-OP-Q Treatments Start: 11/30/23 14:12 Freq: Status: Active Protocol: Document 12/29/23 13:25 SW (Rec: 12/29/23 14:54 [id number]) Therapeutic Exercises Standing Exercises Hip hinge Standing Exercise Name Hip hinge mechanics Side bilateral Resistance AROM Equipment Used wand for tactile feedback Comments edu on lifting mechanics Palloff Standing Exercise Name Palloff press Side bilateral Resistance Level 4 TB Reps/Minutes x10 ea Comments cues for core facilitation, neutral pelvis Other Exercises Bird dog Other Exercise Name UE only> LE only Side bilateral Cat/Camel Other Exercise Name Cat/Camel Comments Quadruped Manual Therapy Treatment Soft Tissue Mobilization Lumbar Body Location R Lumbar paraspinals, QL, upper glute Mobilization Type Myofascial Release,Strumming, Sustained Pressure Body Position Prone Comments STM w/movement hip IR/ER Manual Techniques PNF Type Contract relax Body Location HS Body Position Supine Comments manual HS stretch, pt education for at home stretch against wall Self-Care/Home Management Treatment Education Patient Education Body Mechanics,Home Exercise Program,Posture Other Education Pt education on proper lifting mechanics, pt education on mobility and stability. Posture. PT-OP-T Assessment and Plan Start: 11/30/23 14:12 Freq: Status: Active Protocol: Document 12/29/23 13:25 SW (Rec: 12/29/23 14:54 [id number]) Physical Therapy Assessment Goals Two Impairment Pt experiences increase in low back pain to 5/10 getting out of bed Supervisor Endless Track Vehicle Goal (LTG) Pt to report decreased pain getting out of bed in the morning, a max of 2/10, in order to demonstrate improved functional mobility. LTG Duration 01/31/24 One Impairment Pt does not have an appropriate home exercise program Short Term Goal (STG) Pt to be independent and compliant with an appropriate HEP STG Duration 12/31/23 Assessment Summary Assessment Progressed core strengthening exercises this session with addition of bird dogs, verbal and tactile cues to maintain good alignment and core stability, improved with repetitions, LE only this session, plan to assess progress next session and progress to alternating UE/LE if able. Pt education today on proper lifting mechanics and the importance of proper form and stabilization to decrease exessive lumbar lordosis during lifting. Physical Therapy Plan Frequency and Duration Frequency of Treatment 2x/Week Plan of Care Start Date 11/30/23 Plan of Care End Date 01/31/24 Therapeutic Interventions Therapeutic Interventions Home Exercise Program,Joint Mobilizations,Manual Therapy, Neuromuscular Re-education, Patient/Caregiver Education, Self-Care/Home Management,Soft Tissue Mobilization, Therapeutic Activities, Therapeutic Exercises Modalities Cold Pack/Ice Massage,Hot Packs Next Visit Focus/Plan Next Note Type Treatment Note Next Visit Plan STM, lumbar stretching, core stabilization
--- NOTE | 2024-01-10 15:47 | PT.OTN ---
Current Diagnoses Radiculopathy, lumbar region (01/10/24) Dorsalgia, unspecified (01/10/24) Physical Therapy Treatment Note PT-OP-A Visit Information Start: 11/30/23 14:12 Freq: Status: Active Protocol: Document 01/10/24 11:10 AB (Rec: 01/10/24 15:47 AB [id number]) Out-Patient Physical Therapy Visit Information Visit Information Visit Type Treatment Note Visit Note Visit [email or web address] Access Code: [email or web address] Visit Start Time 13:49 Visit Stop Time 14:29 Visit Number 8 Number of PIANO REGULATOR INSPECTOR Visits 3 Evaluation Information Evaluation Date 11/30/23 PT-OP-B Current Condition Start: 11/30/23 14:12 Freq: Status: Active Protocol: Document 11/30/23 11:15 DCW (Rec: 12/01/23 12:32 DCW [id number]) Current Condition History of Current Condition Onset Date Multi-year history Current Complaints Low back pain History of Current Condition Pt is a 38 year old male presenting with a long- standing history of low back pain, however pt notes that 1- 2 months ago, he had an episode where he bent over to don his pants, and had sudden flare-up of back pain, and was unable to stand up. Ended up needing to crawl up the wall. [place] performed, which, per pt, showed disc bulging in L2- 3, L3-4, and L4-5. Pt reports he had a massage, which seemed to help, and then his PCP provided OMT, which also helped short-term, unfortunately the following day, had severe re-flare-up of pain. Pt notes that every morning is physically painful to get out of bed. Also hurts more when first getting up from sitting for an extended period of time. Pain is mainly across his lumbar spine, but does radiate down the lateral aspect of his leg to his knee, mainly on right, very occasionally on his left. Has been significantly better over the past week. Treatment Goals Patient/Caregiver Goals To be able to get out of his bed in the morning without pain PT-OP-C Subjective Start: 11/30/23 14:12 Freq: Status: Active Protocol: Document 01/10/24 11:10 AB (Rec: 01/10/24 15:47 AB [id number]) OP-PT Subjective Patient Comments Patient Comments Patient reports he is better, pain is less and less. Patient reports discomfort right SI/ LS area persists. Patient reports getting up in the morning is no longer painful PT-OP-F Manual Assessment Start: 11/30/23 14:12 Freq: Status: Active Protocol: Document 11/30/23 11:15 DCW (Rec: 11/30/23 14:28 DCW [id number]) Manual Assessments Soft Tissue Assessment Soft Tissue Mobility Assessment Moderate tone and tenderness to palpation 2/4: Pain with wincing along bilateral lumbar paraspinals, superior glutes, and piriformis Joint Mobility Assessment Joint Mobility Assessment Mild hypomobility of lumbar vertabre P->A PT-OP-K Range of Motion Start: 11/30/23 14:12 Freq: Status: Active Protocol: Document 11/30/23 11:15 DCW (Rec: 11/30/23 14:28 DCW [id number]) Lumbar Spine Range of Motion Lumbar Spine Active Degrees Testing Position Standing Flexion 55 Extension 20 Lateral Flexion Left 55 Lateral Flexion Right 53 ROM Limitations Soft Tissue Tightness Comments Lateral flexion measured in cm from fingertips to floor Increased pain on R with left lateral flexion PT-OP-L Special Tests Start: 11/30/23 14:12 Freq: Status: Active Protocol: Document 11/30/23 11:15 DCW (Rec: 11/30/23 14:28 DCW [id number]) Special Tests Lumbar Spine Special Tests Vertical Spine Loading Test Results Negative Straight Leg Raise Test Results Bilateral hamstring tightness Slump Test Results Bilateral hamstring tightness Prone Press Up Test Results Worsens pain Compression Test Results Negative A-P Shearing Test Results Negative Hip Special Tests Piriformis Test Results Bilateral tightness MARCIN Test Results Positive right ipsilateral pain PT-OP-M Strength Start: 11/30/23 14:12 Freq: Status: Active Protocol: Document 11/30/23 11:15 DCW (Rec: 11/30/23 14:22 DCW [id number]) Hip Strength Hip Manual Muscle Testing Right Flexion (L2) 5 Normal Abduction 5 Normal Adduction 5 Normal Left Flexion (L2) 5 Normal Abduction 5 Normal Adduction 5 Normal Knee Strength Knee Manual Muscle Testing Right Flexion (S2) 5 Normal Extension (L3) 5 Normal Left Flexion (S2) 5 Normal Extension (L3) 5 Normal PT-OP-Q Treatments Start: 11/30/23 14:12 Freq: Status: Active Protocol: Document 01/10/24 11:10 AB (Rec: 01/10/24 15:47 AB [id number]) Therapeutic Exercises Supine Exercises abdominal bracing with LE extension Side bilateral Reps/Minutes x10 ea Comments Verbal cues to brace as LE moves away from core hamstring stretch Supine Exercise Name From hooklying Side bilateral Reps/Minutes X2 each Le Sitting Exercises seated hip abd with band Side bilateral Resistance level 4 band Reps/Minutes one minute X 1 Standing Exercises Pallof press Standing Exercise Name HEP Resistance level 4 blue band Reps/Minutes X15 each side sit to stand/squat Standing Exercise Name 1. sit to stand 2 HEP squat with band Side bilateral Resistance level 4 band Reps/Minutes 2X10 Comments Verbal cues for hip hinge Palloff Standing Exercise Name Palloff press Side bilateral Resistance Level 4 TB Reps/Minutes x10 ea Comments cues for core facilitation, neutral pelvis Other Exercises Bird dog Other Exercise Name UE and LE HEP Side bilateral Reps/Minutes X10 Comments dowel along spine Manual Therapy Treatment Soft Tissue Mobilization right glute/piriformis Mobilization Type Cross-Friction,Rolling Intensity/Depth Moderate Body Position Sidelying Joint Mobilizations right hip Direction inf Grade III Body Position Hooklying Reps/Duration X10 X 3 Manual Techniques contract relax Type right hip Body Position Hooklying Reps/Duration X2 each MET for right AI and PI and pubic shotgun Reps/Duration 6 X 6 sec each PT-OP-T Assessment and Plan Start: 11/30/23 14:12 Freq: Status: Active Protocol: Document 01/10/24 11:10 AB (Rec: 01/10/24 15:47 AB [id number]) Physical Therapy Assessment Goals Two Impairment Pt experiences increase in low back pain to 5/10 getting out of bed Snf Goal (LTG) Pt to report decreased pain getting out of bed in the morning, a max of 2/10, in order to demonstrate improved functional mobility. LTG Duration 01/31/24 One Impairment Pt does not have an appropriate home exercise program Short Term Goal (STG) Pt to be independent and compliant with an appropriate HEP STG Duration 12/31/23 Assessment Summary Assessment Patient reports having no pain end of session. Patient progressed to squats with band , review of bird dog with bird dog and Pallof press also added to HEP this session. Bird dog X10 without losing dowel this session. Physical Therapy Plan Frequency and Duration Frequency of Treatment 2x/Week Plan of Care Start Date 11/30/23 Plan of Care End Date 01/31/24 Next Visit Focus/Plan Next Note Type Treatment Note Next Visit Plan STM, lumbar stretching, core stabilization
--- NOTE | 2024-01-12 09:12 | PT.OTN ---
Current Diagnoses Radiculopathy, lumbar region (01/12/24) Dorsalgia, unspecified (01/12/24) Physical Therapy Treatment Note PT-OP-A Visit Information Start: 11/30/23 14:12 Freq: Status: Active Protocol: Document 01/12/24 08:05 AB (Rec: 01/12/24 09:03 AB [id number]) Out-Patient Physical Therapy Visit Information Visit Information Visit Type Treatment Note Visit Note Visit [email or web address] Access Code: [email or web address] Visit Start Time 08:17 Visit Stop Time 08:59 Visit Number 9 Number of APIARIST Visits 4 Evaluation Information Evaluation Date 11/30/23 PT-OP-B Current Condition Start: 11/30/23 14:12 Freq: Status: Active Protocol: Document 11/30/23 11:15 DCW (Rec: 12/01/23 12:32 DCW [id number]) Current Condition History of Current Condition Onset Date Multi-year history Current Complaints Low back pain History of Current Condition Pt is a 38 year old male presenting with a long- standing history of low back pain, however pt notes that 1- 2 months ago, he had an episode where he bent over to don his pants, and had sudden flare-up of back pain, and was unable to stand up. Ended up needing to crawl up the wall. [place] performed, which, per pt, showed disc bulging in L2- 3, L3-4, and L4-5. Pt reports he had a massage, which seemed to help, and then his PCP provided OMT, which also helped short-term, unfortunately the following day, had severe re-flare-up of pain. Pt notes that every morning is physically painful to get out of bed. Also hurts more when first getting up from sitting for an extended period of time. Pain is mainly across his lumbar spine, but does radiate down the lateral aspect of his leg to his knee, mainly on right, very occasionally on his left. Has been significantly better over the past week. Treatment Goals Patient/Caregiver Goals To be able to get out of his bed in the morning without pain PT-OP-C Subjective Start: 11/30/23 14:12 Freq: Status: Active Protocol: Document 01/12/24 08:05 AB (Rec: 01/12/24 09:03 AB [id number]) OP-PT Subjective Patient Comments Patient Comments Patient reports he is 80-90% better. Patient comments he did wake up with pain right SI area. Patient rates pain 3/ start of session right AI areal. PT-OP-F Manual Assessment Start: 11/30/23 14:12 Freq: Status: Active Protocol: Document 11/30/23 11:15 DCW (Rec: 11/30/23 14:28 DCW [id number]) Manual Assessments Soft Tissue Assessment Soft Tissue Mobility Assessment Moderate tone and tenderness to palpation 2/4: Pain with wincing along bilateral lumbar paraspinals, superior glutes, and piriformis Joint Mobility Assessment Joint Mobility Assessment Mild hypomobility of lumbar vertabre P->A PT-OP-K Range of Motion Start: 11/30/23 14:12 Freq: Status: Active Protocol: Document 11/30/23 11:15 DCW (Rec: 11/30/23 14:28 DCW [id number]) Lumbar Spine Range of Motion Lumbar Spine Active Degrees Testing Position Standing Flexion 55 Extension 20 Lateral Flexion Left 55 Lateral Flexion Right 53 ROM Limitations Soft Tissue Tightness Comments Lateral flexion measured in cm from fingertips to floor Increased pain on R with left lateral flexion PT-OP-L Special Tests Start: 11/30/23 14:12 Freq: Status: Active Protocol: Document 11/30/23 11:15 DCW (Rec: 11/30/23 14:28 DCW [id number]) Special Tests Lumbar Spine Special Tests Vertical Spine Loading Test Results Negative Straight Leg Raise Test Results Bilateral hamstring tightness Slump Test Results Bilateral hamstring tightness Prone Press Up Test Results Worsens pain Compression Test Results Negative A-P Shearing Test Results Negative Hip Special Tests Piriformis Test Results Bilateral tightness MARCIN Test Results Positive right ipsilateral pain PT-OP-M Strength Start: 11/30/23 14:12 Freq: Status: Active Protocol: Document 11/30/23 11:15 DCW (Rec: 11/30/23 14:22 DCW [id number]) Hip Strength Hip Manual Muscle Testing Right Flexion (L2) 5 Normal Abduction 5 Normal Adduction 5 Normal Left Flexion (L2) 5 Normal Abduction 5 Normal Adduction 5 Normal Knee Strength Knee Manual Muscle Testing Right Flexion (S2) 5 Normal Extension (L3) 5 Normal Left Flexion (S2) 5 Normal Extension (L3) 5 Normal PT-OP-Q Treatments Start: 11/30/23 14:12 Freq: Status: Active Protocol: Document 01/12/24 08:05 AB (Rec: 01/12/24 09:03 AB [id number]) Therapeutic Exercises Supine Exercises modified Sae stretch Supine Exercise Name edge of bed HEP Reps/Minutes 60 sec X 2 hamstring stretch Supine Exercise Name From hooklying Side bilateral Reps/Minutes X2 each Le Sitting Exercises hip abd/add Sitting Exercise Name self resisted isometric for self MET HEP Reps/Minutes 6 X 6 seconds Standing Exercises glute med isometric Standing Exercise Name HEP Side bilateral Reps/Minutes one minute each side Comments verbal and visual cues sit to stand/squat Standing Exercise Name 1. sit to stand 2 HEP squat with band Side bilateral Resistance level 4 band Reps/Minutes 3X10 Comments Verbal cues for hip hinge L stretch Standing Exercise Name from counter pank position Side bilateral Other Exercises Cat/Camel Other Exercise Name Cat/Camel Reps/Minutes X10 Comments Quadruped Manual Therapy Treatment Soft Tissue Mobilization right glute/piriformis Mobilization Type Cross-Friction,Rolling Intensity/Depth Moderate Body Position Sidelying Lumbar Body Location R Lumbar paraspinals, QL, upper glute Mobilization Type Sustained Pressure Body Position Prone Comments STM w/movement hip IR/ER Joint Mobilizations right hip Direction inf Grade III Body Position Hooklying Reps/Duration X10 X 3 Lumbar Joint Lumbar vertebrae Direction P->A Grade II Body Position Prone Manual Techniques contract relax Type right hip Body Position Hooklying Reps/Duration X2 each MET for right AI and PI and pubic shotgun Reps/Duration 6 X 6 sec each Comments HEP for AI PI added to HEP and performed X 2 this session PT-OP-T Assessment and Plan Start: 11/30/23 14:12 Freq: Status: Active Protocol: Document 01/12/24 08:05 AB (Rec: 01/12/24 09:03 AB [id number]) Physical Therapy Assessment Goals Two Impairment Pt experiences increase in low back pain to 5/10 getting out of bed Long-Term Goal (LTG) Pt to report decreased pain getting out of bed in the morning, a max of 2/10, in order to demonstrate improved functional mobility. LTG Duration 01/31/24 One Impairment Pt does not have an appropriate home exercise program Short Term Goal (STG) Pt to be independent and compliant with an appropriate HEP STG Duration 12/31/23 Assessment Summary Assessment Elliot rates right sided back pain 05/25 end of session Physical Therapy Plan Frequency and Duration Frequency of Treatment 2x/Week Plan of Care Start Date 11/30/23 Plan of Care End Date 01/31/24 Next Visit Focus/Plan Next Note Type Progress Note Next Visit Plan STM, lumbar stretching, core stabilization
--- NOTE | 2024-01-18 10:31 | PT.OTN ---
Current Diagnoses Radiculopathy, lumbar region (01/18/24) Dorsalgia, unspecified (01/18/24) Physical Therapy Treatment Note PT-OP-A Visit Information Start: 11/30/23 14:12 Freq: Status: Active Protocol: Document 01/18/24 09:45 DCW (Rec: 01/18/24 10:31 DCW [id number]) Out-Patient Physical Therapy Visit Information Visit Information Visit Type Treatment Note Visit Start Time 09:45 Visit Stop Time 10:30 Visit Number 10 Number of PSYCHIATRY TEACHER Visits 0 Evaluation Information Evaluation Date 11/30/23 PT-OP-B Current Condition Start: 11/30/23 14:12 Freq: Status: Active Protocol: Document 11/30/23 11:15 DCW (Rec: 12/01/23 12:32 DCW [id number]) Current Condition History of Current Condition Onset Date Multi-year history Current Complaints Low back pain History of Current Condition Pt is a 38 year old male presenting with a long- standing history of low back pain, however pt notes that 1- 2 months ago, he had an episode where he bent over to don his pants, and had sudden flare-up of back pain, and was unable to stand up. Ended up needing to crawl up the wall[place], which, per pt, showed disc bulging in L2- 3, L3-4, and L4-5. Pt reports he had a massage, which seemed to help, and then his PCP provided OMT, which also helped short-term, unfortunately the following day, had severe re-flare-up of pain. Pt notes that every morning is physically painful to get out of bed. Also hurts more when first getting up from sitting for an extended period of time. Pain is mainly across his lumbar spine, but does radiate down the lateral aspect of his leg to his knee, mainly on right, very occasionally on his left. Has been significantly better over the past week. Treatment Goals Patient/Caregiver Goals To be able to get out of his bed in the morning without pain PT-OP-C Subjective Start: 11/30/23 14:12 Freq: Status: Active Protocol: Document 01/18/24 09:45 DCW (Rec: 01/18/24 10:31 DCW [id number]) OP-PT Subjective Patient Comments Patient Comments Pt notes it was all good until this weekent. It kind of flamed back up. Reports he was stiff and sore when waking up, yesterday and today, loosens up throughout the day, but the worsens again in the evening. PT-OP-F Manual Assessment Start: 11/30/23 14:12 Freq: Status: Active Protocol: Document 11/30/23 11:15 DCW (Rec: 11/30/23 14:28 DCW [id number]) Manual Assessments Soft Tissue Assessment Soft Tissue Mobility Assessment Moderate tone and tenderness to palpation 2/4: Pain with wincing along bilateral lumbar paraspinals, superior glutes, and piriformis Joint Mobility Assessment Joint Mobility Assessment Mild hypomobility of lumbar vertabre P->A PT-OP-K Range of Motion Start: 11/30/23 14:12 Freq: Status: Active Protocol: Document 11/30/23 11:15 DCW (Rec: 11/30/23 14:28 DCW [id number]) Lumbar Spine Range of Motion Lumbar Spine Active Degrees Testing Position Standing Flexion 55 Extension 20 Lateral Flexion Left 55 Lateral Flexion Right 53 ROM Limitations Soft Tissue Tightness Comments Lateral flexion measured in cm from fingertips to floor Increased pain on R with left lateral flexion PT-OP-L Special Tests Start: 11/30/23 14:12 Freq: Status: Active Protocol: Document 11/30/23 11:15 DCW (Rec: 11/30/23 14:28 DCW [id number]) Special Tests Lumbar Spine Special Tests Vertical Spine Loading Test Results Negative Straight Leg Raise Test Results Bilateral hamstring tightness Slump Test Results Bilateral hamstring tightness Prone Press Up Test Results Worsens pain Compression Test Results Negative A-P Shearing Test Results Negative Hip Special Tests Piriformis Test Results Bilateral tightness MARCIN Test Results Positive right ipsilateral pain PT-OP-M Strength Start: 11/30/23 14:12 Freq: Status: Active Protocol: Document 11/30/23 11:15 DCW (Rec: 11/30/23 14:22 DCW [id number]) Hip Strength Hip Manual Muscle Testing Right Flexion (L2) 5 Normal Abduction 5 Normal Adduction 5 Normal Left Flexion (L2) 5 Normal Abduction 5 Normal Adduction 5 Normal Knee Strength Knee Manual Muscle Testing Right Flexion (S2) 5 Normal Extension (L3) 5 Normal Left Flexion (S2) 5 Normal Extension (L3) 5 Normal PT-OP-Q Treatments Start: 11/30/23 14:12 Freq: Status: Active Protocol: Document 01/18/24 09:45 DCW (Rec: 01/18/24 10:31 DCW [id number]) Therapeutic Exercises Supine Exercises hamstring stretch Supine Exercise Name From hooklying Side bilateral Piriformis Stretch Supine Exercise Name Knee to opposite shoulder, Figure-4 Side bilateral Manual Therapy Treatment Consent Patient gave verbal consent for manual Yes treatment Soft Tissue Mobilization right glute/piriformis Mobilization Type Cross-Friction,Rolling Intensity/Depth Moderate Body Position Supine Lumbar Body Location R Lumbar paraspinals, QL, upper glute Mobilization Type Sustained Pressure Body Position Prone Comments STM w/movement hip IR/ER Joint Mobilizations Lumbar Joint Lumbar vertebrae Direction P->A Grade II Body Position Prone PT-OP-T Assessment and Plan Start: 11/30/23 14:12 Freq: Status: Active Protocol: Document 01/18/24 09:45 DCW (Rec: 01/18/24 10:31 DCW [id number]) Physical Therapy Assessment Impairments Impairments Functional Activities, Functional Mobility,Soft Tissue Mobility,Tone Goals Two Impairment Pt experiences increase in low back pain to 5/10 getting out of bed Group Home Goal (LTG) Pt to report decreased pain getting out of bed in the morning, a max of 2/10, in order to demonstrate improved functional mobility. LTG Duration 01/31/24 One Impairment Pt does not have an appropriate home exercise program Short Term Goal (STG) Pt to be independent and compliant with an appropriate HEP STG Duration 12/31/23 Assessment Summary Assessment Some overall changes in tone today, pt slightly more restricted than he has been during recent visits. Did tolerate focus on manual well, significant subjective improvement upon leaving. Physical Therapy Plan Frequency and Duration Frequency of Treatment 2x/Week Plan of Care Start Date 11/30/23 Plan of Care End Date 01/31/24 Next Visit Focus/Plan Next Note Type Treatment Note Next Visit Plan STM, lumbar stretching, core stabilization
--- NOTE | 2024-01-23 14:41 | PT.OTN ---
Current Diagnoses Radiculopathy, lumbar region (01/23/24) Dorsalgia, unspecified (01/23/24) Physical Therapy Treatment Note PT-OP-A Visit Information Start: 11/30/23 14:12 Freq: Status: Active Protocol: Document 01/23/24 12:46 AB (Rec: 01/23/24 14:41 AB [id number]) Out-Patient Physical Therapy Visit Information Visit Information Visit Type Treatment Note Visit Note Visit [email or web address] Access Code: [email or web address] Visit Start Time 13:00 Visit Stop Time 13:46 Visit Number 11 Number of GAS ATTENDANT Visits 1 Evaluation Information Evaluation Date 11/30/23 PT-OP-B Current Condition Start: 11/30/23 14:12 Freq: Status: Active Protocol: Document 11/30/23 11:15 DCW (Rec: 12/01/23 12:32 DCW [id number]) Current Condition History of Current Condition Onset Date Multi-year history Current Complaints Low back pain History of Current Condition Pt is a 38 year old male presenting with a long- standing history of low back pain, however pt notes that 1- 2 months ago, he had an episode where he bent over to don his pants, and had sudden flare-up of back pain, and was unable to stand up. Ended up needing to crawl up the wall. [place] performed, which, per pt, showed disc bulging in L2- 3, L3-4, and L4-5. Pt reports he had a massage, which seemed to help, and then his PCP provided OMT, which also helped short-term, unfortunately the following day, had severe re-flare-up of pain. Pt notes that every morning is physically painful to get out of bed. Also hurts more when first getting up from sitting for an extended period of time. Pain is mainly across his lumbar spine, but does radiate down the lateral aspect of his leg to his knee, mainly on right, very occasionally on his left. Has been significantly better over the past week. Treatment Goals Patient/Caregiver Goals To be able to get out of his bed in the morning without pain PT-OP-C Subjective Start: 11/30/23 14:12 Freq: Status: Active Protocol: Document 01/23/24 12:46 AB (Rec: 01/23/24 14:41 AB [id number]) OP-PT Subjective Patient Comments Patient Comments Patient reports he feels fine today, reports he feels tight in the muscles along the spine mostly the right side. PT-OP-F Manual Assessment Start: 11/30/23 14:12 Freq: Status: Active Protocol: Document 11/30/23 11:15 DCW (Rec: 11/30/23 14:28 DCW [id number]) Manual Assessments Soft Tissue Assessment Soft Tissue Mobility Assessment Moderate tone and tenderness to palpation 2/4: Pain with wincing along bilateral lumbar paraspinals, superior glutes, and piriformis Joint Mobility Assessment Joint Mobility Assessment Mild hypomobility of lumbar vertabre P->A PT-OP-K Range of Motion Start: 11/30/23 14:12 Freq: Status: Active Protocol: Document 11/30/23 11:15 DCW (Rec: 11/30/23 14:28 DCW [id number]) Lumbar Spine Range of Motion Lumbar Spine Active Degrees Testing Position Standing Flexion 55 Extension 20 Lateral Flexion Left 55 Lateral Flexion Right 53 ROM Limitations Soft Tissue Tightness Comments Lateral flexion measured in cm from fingertips to floor Increased pain on R with left lateral flexion PT-OP-L Special Tests Start: 11/30/23 14:12 Freq: Status: Active Protocol: Document 11/30/23 11:15 DCW (Rec: 11/30/23 14:28 DCW [id number]) Special Tests Lumbar Spine Special Tests Vertical Spine Loading Test Results Negative Straight Leg Raise Test Results Bilateral hamstring tightness Slump Test Results Bilateral hamstring tightness Prone Press Up Test Results Worsens pain Compression Test Results Negative A-P Shearing Test Results Negative Hip Special Tests Piriformis Test Results Bilateral tightness MARCIN Test Results Positive right ipsilateral pain PT-OP-M Strength Start: 11/30/23 14:12 Freq: Status: Active Protocol: Document 11/30/23 11:15 DCW (Rec: 11/30/23 14:22 DCW [id number]) Hip Strength Hip Manual Muscle Testing Right Flexion (L2) 5 Normal Abduction 5 Normal Adduction 5 Normal Left Flexion (L2) 5 Normal Abduction 5 Normal Adduction 5 Normal Knee Strength Knee Manual Muscle Testing Right Flexion (S2) 5 Normal Extension (L3) 5 Normal Left Flexion (S2) 5 Normal Extension (L3) 5 Normal PT-OP-Q Treatments Start: 11/30/23 14:12 Freq: Status: Active Protocol: Document 01/23/24 12:46 AB (Rec: 01/23/24 14:41 AB [id number]) Therapeutic Exercises Standing Exercises Pallof press Standing Exercise Name HEP for level 5 bnd Resistance level 5 blue band Reps/Minutes X15 each side sit to stand/squat Standing Exercise Name 1. sit to stand 2 HEP squat with band Side bilateral Resistance level 5 band Reps/Minutes 3X10 Comments Verbal cues for hip hinge Gastroc/soleus Standing Exercise Name gastroc/soleus stretch Palloff Standing Exercise Name Palloff press Side bilateral Resistance Level 5 TB Reps/Minutes x15 ea Other Exercises Child's Pose Reps/Minutes X5 Cat/Camel Other Exercise Name Cat/Camel Reps/Minutes X10 Comments Quadruped Manual Therapy Treatment Soft Tissue Mobilization Lumbar Body Location B lumbar paraspinals Mobilization Type Sustained Pressure Body Position Prone Comments STM w/movement hip IR/ER Taping thoracic to SI/lower LS Treatment Focus posture/stiffness sensation Manual Techniques contract relax Type bilateral HS Body Position from Hooklying Reps/Duration X2 each PT-OP-T Assessment and Plan Start: 11/30/23 14:12 Freq: Status: Active Protocol: Document 01/23/24 12:46 AB (Rec: 01/23/24 14:41 AB [id number]) Physical Therapy Assessment Goals Two Impairment Pt experiences increase in low back pain to 5/10 getting out of bed Residential Goal (LTG) Pt to report decreased pain getting out of bed in the morning, a max of 2/10, in order to demonstrate improved functional mobility. LTG Duration 01/31/24 One Impairment Pt does not have an appropriate home exercise program Short Term Goal (STG) Pt to be independent and compliant with an appropriate HEP STG Duration 12/31/23 Assessment Summary Assessment Patient reports having no pain end of session. Physical Therapy Plan Frequency and Duration Frequency of Treatment 2x/Week Plan of Care Start Date 11/30/23 Plan of Care End Date 01/31/24 Therapeutic Interventions Therapeutic Interventions Home Exercise Program,Joint Mobilizations,Manual Therapy, Neuromuscular Re-education, Patient/Caregiver Education, Self-Care/Home Management,Soft Tissue Mobilization, Therapeutic Activities, Therapeutic Exercises Modalities Cold Pack/Ice Massage,Hot Packs Next Visit Focus/Plan Next Note Type Treatment Note Next Visit Plan STM, lumbar stretching, core stabilization
--- NOTE | 2024-01-26 11:20 | PT.OTN ---
Current Diagnoses Radiculopathy, lumbar region (01/26/24) Dorsalgia, unspecified (01/26/24) Physical Therapy Treatment Note PT-OP-A Visit Information Start: 11/30/23 14:12 Freq: Status: Active Protocol: Document 01/26/24 10:30 DCW (Rec: 01/26/24 11:20 DCW [id number]) Out-Patient Physical Therapy Visit Information Visit Information Visit Type Progress Note Visit Start Time 10:30 Visit Stop Time 11:15 Visit Number 12 Number of THERAPY ADMINISTRATIVE ASSISTANT Visits 0 Evaluation Information Evaluation Date 11/30/23 PT-OP-B Current Condition Start: 11/30/23 14:12 Freq: Status: Active Protocol: Document 11/30/23 11:15 DCW (Rec: 12/01/23 12:32 DCW [id number]) Current Condition History of Current Condition Onset Date Multi-year history Current Complaints Low back pain History of Current Condition Pt is a 38 year old male presenting with a long- standing history of low back pain, however pt notes that 1- 2 months ago, he had an episode where he bent over to don his pants, and had sudden flare-up of back pain, and was unable to stand up. Ended up needing to crawl up the wall. [place] had [place] MRI performed, which, per pt, showed disc bulging in L2- 3, L3-4, and L4-5. Pt reports he had a massage, which seemed to help, and then his PCP provided OMT, which also helped short-term, unfortunately the following day, had severe re-flare-up of pain. Pt notes that every morning is physically painful to get out of bed. Also hurts more when first getting up from sitting for an extended period of time. Pain is mainly across his lumbar spine, but does radiate down the lateral aspect of his leg to his knee, mainly on right, very occasionally on his left. Has been significantly better over the past week. Treatment Goals Patient/Caregiver Goals To be able to get out of his bed in the morning without pain PT-OP-C Subjective Start: 11/30/23 14:12 Freq: Status: Active Protocol: Document 01/26/24 10:30 DCW (Rec: 01/26/24 11:20 DCW [id number]) OP-PT Subjective Patient Comments Patient Comments I'm feeling lot better. Notes that he is no longer waking up due to pain. Still can be sore in the morning (~3 /10) if he did too much at work the previous day. PT-OP-F Manual Assessment Start: 11/30/23 14:12 Freq: Status: Active Protocol: Document 01/26/24 10:30 DCW (Rec: 01/26/24 10:48 DCW [id number]) Manual Assessments Soft Tissue Assessment Soft Tissue Mobility Assessment Moderate tone and tenderness to palpation 1/4: Complaint of pain along bilateral lumbar paraspinals, superior glutes, and piriformis Joint Mobility Assessment Joint Mobility Assessment Mild hypomobility of lumbar vertabre P->A PT-OP-K Range of Motion Start: 11/30/23 14:12 Freq: Status: Active Protocol: Document 01/26/24 10:30 DCW (Rec: 01/26/24 10:48 DCW [id number]) Lumbar Spine Range of Motion Lumbar Spine Active Degrees Testing Position Standing Flexion 65 Extension 30 Lateral Flexion Left 50 Lateral Flexion Right 50 Comments Lateral flexion measured in cm from fingertips to floor PT-OP-L Special Tests Start: 11/30/23 14:12 Freq: Status: Active Protocol: Document 01/26/24 10:30 DCW (Rec: 01/26/24 10:48 DCW [id number]) Special Tests Lumbar Spine Special Tests Vertical Spine Loading Test Results Negative Straight Leg Raise Test Results Bilateral hamstring tightness Slump Test Results Bilateral hamstring tightness Prone Press Up Test Results Worsens pain Compression Test Results Negative A-P Shearing Test Results Negative Hip Special Tests Piriformis Test Results Mild bilateral tightness MARCIN Test Results Mild L ipsilateral pressure PT-OP-M Strength Start: 11/30/23 14:12 Freq: Status: Active Protocol: Document 11/30/23 11:15 DCW (Rec: 11/30/23 14:22 DCW [id number]) Hip Strength Hip Manual Muscle Testing Right Flexion (L2) 5 Normal Abduction 5 Normal Adduction 5 Normal Left Flexion (L2) 5 Normal Abduction 5 Normal Adduction 5 Normal Knee Strength Knee Manual Muscle Testing Right Flexion (S2) 5 Normal Extension (L3) 5 Normal Left Flexion (S2) 5 Normal Extension (L3) 5 Normal PT-OP-Q Treatments Start: 11/30/23 14:12 Freq: Status: Active Protocol: Document 01/26/24 10:30 DCW (Rec: 01/26/24 11:20 DCW [id number]) Manual Therapy Treatment Consent Patient gave verbal consent for manual Yes treatment Soft Tissue Mobilization right glute/piriformis Mobilization Type Cross-Friction,Rolling Intensity/Depth Moderate Body Position Supine Lumbar Body Location R Lumbar paraspinals, QL, upper glute Mobilization Type Sustained Pressure Body Position Prone Comments STM w/movement hip IR/ER Joint Mobilizations Lumbar Joint Lumbar vertebrae Direction P->A Grade II Body Position Prone PT-OP-T Assessment and Plan Start: 11/30/23 14:12 Freq: Status: Active Protocol: Document 01/26/24 10:30 DCW (Rec: 01/26/24 11:20 DCW [id number]) Physical Therapy Assessment Impairments Impairments Functional Activities, Functional Mobility,Soft Tissue Mobility,Tone Goals Two Impairment Pt experiences increase in low back pain to 5/10 getting out of bed Custodial Goal (LTG) Pt to report decreased pain getting out of bed in the morning, a max of 2/10, in order to demonstrate improved functional mobility. LTG Duration 03/27/24 - Improving (3/10) One Impairment Pt does not have an appropriate home exercise program Short Term Goal (STG) Pt to be independent and compliant with an appropriate HEP STG Duration Met Assessment Summary Assessment Pt showing progress in all areas, doing well with HEP. Lumbar ROM improving, increased mobility of vertebrae. Continues to experience some increased discomfort after more active days, would likely benefit from continued skilled therapeutic intervention in order to improve tone, mobility, and decrease overall soreness. Physical Therapy Plan Frequency and Duration Frequency of Treatment 2x/Week Plan of Care Start Date 01/26/24 Plan of Care End Date 03/27/24 Therapeutic Interventions Therapeutic Interventions Home Exercise Program,Joint Mobilizations,Manual Therapy, Neuromuscular Re-education, Patient/Caregiver Education, Self-Care/Home Management,Soft Tissue Mobilization, Therapeutic Activities, Therapeutic Exercises Modalities Cold Pack/Ice Massage,Hot Packs Next Visit Focus/Plan Next Note Type Treatment Note Next Visit Plan STM, lumbar stretching, core stabilization
--- NOTE | 2024-01-26 11:21 | PT.OPPOC ---
Physical, Occupational & Speech Therapy At [facility] Current Diagnoses Radiculopathy, lumbar region (01/26/24) Dorsalgia, unspecified (01/26/24) Visit Care Team Role Provider Type PANCHO Cohn Attending Provider Non-Staff Primary Care Provider Referring Provider Specialty: Nursing Address: [address], [address] Email: Plan Of Care PT-OP-B Current Condition Start: 11/30/23 14:12 Freq: Status: Active Protocol: Document 11/30/23 11:15 DCW (Rec: 12/01/23 12:32 DCW [id number]) Current Condition History of Current Condition Onset Date Multi-year history Current Complaints Low back pain History of Current Condition Pt is a 38 year old male presenting with a long- standing history of low back pain, however pt notes that 1- 2 months ago, he had an episode where he bent over to don his pants, and had sudden flare-up of back pain, and was unable to stand up. Ended up needing to crawl up the wall. [place] performed, which, per pt, showed disc bulging in L2- 3, L3-4, and L4-5. Pt reports he had a massage, which seemed to help, and then his PCP provided OMT, which also helped short-term, unfortunately the following day, had severe re-flare-up of pain. Pt notes that every morning is physically painful to get out of bed. Also hurts more when first getting up from sitting for an extended period of time. Pain is mainly across his lumbar spine, but does radiate down the lateral aspect of his leg to his knee, mainly on right, very occasionally on his left. Has been significantly better over the past week. Treatment Goals Patient/Caregiver Goals To be able to get out of his bed in the morning without pain PT-OP-T Assessment and Plan Start: 11/30/23 14:12 Freq: Status: Active Protocol: Document 01/26/24 10:30 DCW (Rec: 01/26/24 11:20 DCW [id number]) Physical Therapy Assessment Impairments Impairments Functional Activities, Functional Mobility,Soft Tissue Mobility,Tone Goals Two Impairment Pt experiences increase in low back pain to 5/10 getting out of bed Supervisor [employer] Goal (LTG) Pt to report decreased pain getting out of bed in the morning, a max of 2/10, in order to demonstrate improved functional mobility. LTG Duration 03/27/24 - Improving (3/10) One Impairment Pt does not have an appropriate home exercise program Short Term Goal (STG) Pt to be independent and compliant with an appropriate HEP STG Duration Met Assessment Summary Assessment Pt showing progress in all areas, doing well with HEP. Lumbar ROM improving, increased mobility of vertebrae. Continues to experience some increased discomfort after more active days, would likely benefit from continued skilled therapeutic intervention in order to improve tone, mobility, and decrease overall soreness. Physical Therapy Plan Frequency and Duration Frequency of Treatment 2x/Week Plan of Care Start Date 01/26/24 Plan of Care End Date 03/27/24 Therapeutic Interventions Therapeutic Interventions Home Exercise Program,Joint Mobilizations,Manual Therapy, Neuromuscular Re-education, Patient/Caregiver Education, Self-Care/Home Management,Soft Tissue Mobilization, Therapeutic Activities, Therapeutic Exercises Modalities Cold Pack/Ice Massage,Hot Packs Next Visit Focus/Plan Next Note Type Treatment Note Next Visit Plan STM, lumbar stretching, core stabilization Plan of Care Dates Plan of Care Start Date 01/26/24 Plan of Care End Date 03/27/24 Electronically Signed by: Milan Tucker, PT 01/26/24 [id number] If you are in agreement with this Plan of Care, please return a signed and dated copy. I have reviewed this Plan of Care and certify that the skilled therapy services above are required to meet the patient?s needs. Physician Signature Date Printed Name and Credentials Clinical Instructor Signature Printed Name and Credentials
--- NOTE | 2024-07-09 12:04 | PT.OPDS ---
Current Diagnoses Radiculopathy, lumbar region (01/26/24) Dorsalgia, unspecified (01/26/24) Visit Care Team Role Provider Type PANCHO Cohn Attending Provider Non-Staff Primary Care Provider Referring Provider Specialty: Nursing Address: [facility] [place], [address] Email: Visit Number Visit Number 12 Discharge Summary PT-OP-B Current Condition Start: 11/30/23 14:12 Freq: Status: Active Protocol: Document 11/30/23 11:15 DCW (Rec: 12/01/23 12:32 DCW [id number]) Current Condition History of Current Condition Onset Date Multi-year history Current Complaints Low back pain History of Current Condition Pt is a 38 year old male presenting with a long- standing history of low back pain, however pt notes that 1- 2 months ago, he had an episode where he bent over to don his pants, and had sudden flare-up of back pain, and was unable to stand up. Ended up needing to crawl up the wall. [place], which, per pt, showed disc bulging in L2- 3, L3-4, and L4-5. Pt reports he had a massage, which seemed to help, and then his PCP provided OMT, which also helped short-term, unfortunately the following day, had severe re-flare-up of pain. Pt notes that every morning is physically painful to get out of bed. Also hurts more when first getting up from sitting for an extended period of time. Pain is mainly across his lumbar spine, but does radiate down the lateral aspect of his leg to his knee, mainly on right, very occasionally on his left. Has been significantly better over the past week. Treatment Goals Patient/Caregiver Goals To be able to get out of his bed in the morning without pain PT-OP-C Subjective Start: 11/30/23 14:12 Freq: Status: Active Protocol: Document 01/26/24 10:30 DCW (Rec: 01/26/24 11:20 DCW [id number]) OP-PT Subjective Patient Comments Patient Comments I'm feeling lot better. Notes that he is no longer waking up due to pain. Still can be sore in the morning (~3 /10) if he did too much at work the previous day. PT-OP-F Manual Assessment Start: 11/30/23 14:12 Freq: Status: Active Protocol: Document 01/26/24 10:30 DCW (Rec: 01/26/24 10:48 DCW [id number]) Manual Assessments Soft Tissue Assessment Soft Tissue Mobility Assessment Moderate tone and tenderness to palpation 1/4: Complaint of pain along bilateral lumbar paraspinals, superior glutes, and piriformis Joint Mobility Assessment Joint Mobility Assessment Mild hypomobility of lumbar vertabre P->A PT-OP-K Range of Motion Start: 11/30/23 14:12 Freq: Status: Active Protocol: Document 01/26/24 10:30 DCW (Rec: 01/26/24 10:48 DCW [id number]) Lumbar Spine Range of Motion Lumbar Spine Active Degrees Testing Position Standing Flexion 65 Extension 30 Lateral Flexion Left 50 Lateral Flexion Right 50 Comments Lateral flexion measured in cm from fingertips to floor PT-OP-L Special Tests Start: 11/30/23 14:12 Freq: Status: Active Protocol: Document 01/26/24 10:30 DCW (Rec: 01/26/24 10:48 DCW [id number]) Special Tests Lumbar Spine Special Tests Vertical Spine Loading Test Results Negative Straight Leg Raise Test Results Bilateral hamstring tightness Slump Test Results Bilateral hamstring tightness Prone Press Up Test Results Worsens pain Compression Test Results Negative A-P Shearing Test Results Negative Hip Special Tests Piriformis Test Results Mild bilateral tightness MARCIN Test Results Mild L ipsilateral pressure PT-OP-M Strength Start: 11/30/23 14:12 Freq: Status: Active Protocol: Document 11/30/23 11:15 DCW (Rec: 11/30/23 14:22 DCW [id number]) Hip Strength Hip Manual Muscle Testing Right Flexion (L2) 5 Normal Abduction 5 Normal Adduction 5 Normal Left Flexion (L2) 5 Normal Abduction 5 Normal Adduction 5 Normal Knee Strength Knee Manual Muscle Testing Right Flexion (S2) 5 Normal Extension (L3) 5 Normal Left Flexion (S2) 5 Normal Extension (L3) 5 Normal PT-OP-T Assessment and Plan Start: 11/30/23 14:12 Freq: Status: Active Protocol: Document 07/09/24 12:03 DCW (Rec: 07/09/24 12:04 DCW [id number]) Physical Therapy Assessment Assessment Summary Assessment Pt has not been seen in more than five months, and POC has . Pt will require a new referral in order to return to skilled PT in the future. Physical Therapy Plan Discharge Physical Therapy Discharge Reasons No Longer Attending PT
== END 2024-07-10 09:50 | disposition home or self-care (01) ==
LOC: PHYS 10:30
PROVIDERS: PCP Nurse Practitioner Family; Referring Provider Nurse Practitioner Family; Visit Provider Nurse Practitioner Family
DX: M54.16 Radiculopathy, lumbar region (principal); M54.9 Dorsalgia, unspecified
CPT/HCPCS: 97110; 97140; 97161; 97530